=== PATIENT | male | born 1995 | race African-American/Black ===

== ENCOUNTER 2024-04-03 14:13 | Emergency (ER) | payer MEDICAID ==
[~2024-04-03] VITALS: Ht 170.2 cm; Wt 75.0 kg
[~2024-04-03 14:13] MED LIST: CHLO50TA50; DES150; DIVA-18; FLUO20CA39; QUET25TA
[2024-04-03 14:15] VITALS: BP 150/100; PULSE 89; RESP 18; TEMP 98.8; O2SAT 99
[2024-04-03] MEDS ORDERED: LORAZEPAM 2MG/ML INJ IM STA (14:18)
[2024-04-03] MEDS ORDERED: HALOPERIDOL LACTATE 5MG/ML VIAL IM STA (14:18)
[2024-04-03] MEDS ORDERED: DIPHENHYDRAMINE 50MG/ML VIAL IM STA (14:18)
[2024-04-03 15:09] LABS: HEMOGLOBIN. 17.2 g/dL (14.0-18.0); MEAN CORPUSCULAR HEMOGLOBIN 32.8 pg (28.0-32.0); MEAN CORPUSCULAR HGB CONC 33.1 g/dL (31.0-37.0); MEAN CORPUSCULAR VOLUME 98.9 fL (80.0-94.0); MEAN PLATELET VOLUME 9.4 fl (7.4-10.4); PLATELET 230 x1000/uL (130-400); RED BLOOD CELL COUNT 5.26 mill/uL (4.7-6.1); WHITE BLOOD COUNT 17.2 x1000/uL (4.5-11.0)
[2024-04-03 15:14] LABS: DIFFERENTIAL COMMENT 1
[2024-04-03 15:16] LABS: CHLORIDE 107 mEq/L (98-107); POTASSIUM 4.1 mEq/L (3.5-5.1); SODIUM 141 mEq/L (136-145)
[2024-04-03 15:17] LABS: CARBON DIOXIDE 26 mEq/L (21-32)
[2024-04-03 15:18] LABS: CALCIUM 10.4 mg/dL (8.7-10.4)
[2024-04-03 15:22] LABS: CREATININE 1.4 mg/dL (0.6-1.3); GLUCOSE 67 mg/dL (70-105); UREA NITROGEN BLOOD 13 mg/dL (9-23)
[2024-04-03 15:42] LABS: PLATELET ESTIMATE NORMAL
[2024-04-03 15:57] LABS: ETHANOL BLOOD < 10 mg/dL (<10)
== END 2024-04-03 19:15 | disposition home or self-care (01) ==
LOC: ER 14:13
DX: F15.10 Other stimulant abuse, uncomplicated (principal); F14.10 Cocaine abuse, uncomplicated; F12.10 Cannabis abuse, uncomplicated; J45.909 Unspecified asthma, uncomplicated
CPT/HCPCS: 80048; 80320; 85025; 36415; 72100; 99284; Z7610; G0480

== ENCOUNTER 2025-03-15 22:48 | Emergency (ER) | payer MEDICAID ==
[~2025-03-15] VITALS: Ht 165.1 cm; Wt 66.0 kg
[~2025-03-15 22:48] MED LIST changes: +FLUO-413; -FLUO20CA39
[2025-03-15 22:57] VITALS: O2SAT 100
[2025-03-15 23:28] LABS: BASOPHILS % 0.6 % (0.0-2.0); EOSINOPHILS % 1.3 % (0.0-5.0); HEMATOCRIT. 49.8 % (42.0-52.0); HEMOGLOBIN. 16.6 g/dL (14.0-18.0); LYMPHOCYTES % 17.5 % (20.0-50.0); MEAN PLATELET VOLUME 8.8 fl (7.4-10.4); MONOCYTES % 5.8 % (2.0-8.0); NEUTROPHILS % 74.8 % (40.0-76.0); PLATELET 263 x1000/uL (130-400); RED BLOOD CELL COUNT 5.09 mill/uL (4.7-6.1); RED CELL DISTRIBUTION WIDTH 13.2 % (11.6-14.6)
[2025-03-15 23:40] LABS: UREA NITROGEN BLOOD 20 mg/dL (9-23)
[2025-03-15 23:41] LABS: CREATININE 1.0 mg/dL (0.6-1.3)
[2025-03-15 23:42] LABS: ETHANOL BLOOD < 10 mg/dL (<10)
[2025-03-15 23:43] LABS: ASPARTATE AMINOTRANSFERASE 53 IU/L (<34); BILIRUBIN DIRECT 0.1 mg/dL (<=3.0); BILIRUBIN TOTAL 0.4 mg/dL (0.1-1.0); PROTEIN TOTAL 7.9 g/dL (6.0-8.3)
[2025-03-16 03:23] LABS: CLARITY URINE CLEAR (CLEAR); COLOR URINE YELLOW (YELLOW); GLUCOSE URINE NEGATIVE (NEGATIVE); KETONES URINE TRACE (NEGATIVE); LEUKOCYTE ESTERASE URINE NEGATIVE (NEGATIVE); NITRITE URINE NEGATIVE (NEGATIVE); OCCULT BLOOD URINE NEGATIVE (NEGATIVE); PH URINE 6.0 (4.5-8.0); PROTEIN URINE TRACE (NEGATIVE); SPECIFIC GRAVITY URINE 1.033 (1.005-1.030); UROBILINOGEN URINE 1.0 E.U./dL (0.2-1.0)
[2025-03-16 03:39] LABS: BACTERIA URINE TRACE; RBC URINE NONE SEEN /hpf (0-2); SQUAMOUS EPITHELIAL CELL URINE NONE SEEN /lpf (RARE/1+); WBC URINE 0-2 /hpf (0-2)
[2025-03-16 03:40] LABS: *AMPHETAMINES SCREEN URINE NEGATIVE (NEGATIVE); *BARBITURATES SCREEN URINE NEGATIVE (NEGATIVE); *BENZODIAZEPINES SCREEN URINE NEGATIVE (NEGATIVE); *COCAINE SCREEN URINE NEGATIVE (NEGATIVE)
[2025-03-16 03:41] LABS: CANNABINOID URINE SCREEN PRESUMPTIVE POSITIVE (NEGATIVE); ECSTASY MDMA SCREEN URINE NEGATIVE (NEGATIVE); METHADONE URINE SCREEN NEGATIVE (NEGATIVE); OPIATES URINE SCREEN NEGATIVE (NEGATIVE); PHENCYCLIDINE URINE SCREEN NEGATIVE (NEGATIVE)
[2025-03-16] MEDS: RISPERIDONE 0.5MG TABLET PO SCH (11:17)
[2025-03-16 17:10] VITALS: BP 151/71; PULSE 88; RESP 19; TEMP 36.7; O2SAT 100
== END 2025-03-16 17:11 ==
LOC: ER 22:48
DX: R45.851 Suicidal ideations (principal); J45.909 Unspecified asthma, uncomplicated; F14.90 Cocaine use, unspecified, uncomplicated; F12.90 Cannabis use, unspecified, uncomplicated; Z79.899 Other long term (current) drug therapy; Z20.822 Contact with and (suspected) exposure to COVID-19; Z98.890 Other specified postprocedural states
CPT/HCPCS: 36415; 80048; 80076; 80305; 80307; 80320; 80329; 81003; 85025; 87426; 99285; G0480